=== PATIENT | female | born 1995 | race Caucasian/White ===

== ENCOUNTER → 2021-11-05 | Outpatient (CLI) | payer OTHER | LOC: M RAD 14:21 | PROVIDERS: ATTEND Nurse Practitioner Adult Health | DX: R10.11 Right upper quadrant pain (principal) ==

== ENCOUNTER → 2021-12-30 | Outpatient (CLI) | payer OTHER ==
[2021-12-30 09:00] LABS: BASO # 0.1 10^3/uL (0.0-0.2); BASO % 1.4 % (0.0-1.0); EOS # 0.5 10^3/uL (0.0-0.5); HEMATOCRIT 42.9 % (36.0-47.0); HEMOGLOBIN 14.5 g/dl (12.0-15.5); LYMPH # 2.6 10^3/uL (1.5-5.0); LYMPH % 36.2 % (24.0-44.0); MEAN CORPUSCULAR HEMOGLOBIN 29.2 pg (27.0-33.0); MEAN CORPUSCULAR HGB CONC 33.8 g/dl (32.0-36.5); MEAN CORPUSCULAR VOLUME 86.5 fl (80.0-96.0); MONO # 0.3 10^3/uL (0.0-0.8); MONO % 4.8 % (2.0-8.0); NEUTROPHILS # 3.6 10^3/uL (1.5-8.5); NEUTROPHILS % 50.3 % (36.0-66.0); PLATELET COUNT, AUTOMATED 280 10^3/uL (150-450); RED BLOOD COUNT 4.96 10^6/uL (4.00-5.40); WHITE BLOOD COUNT 7.1 10^3/uL (4.0-10.0)
[2021-12-30 09:44] LABS: ALBUMIN 4.2 GM/DL (3.2-5.2); ALT/SGPT 22 U/L (12-78); BILIRUBIN,TOTAL 1.3 MG/DL (0.2-1.0); BLOOD UREA NITROGEN 9 MG/DL (7-18); CALCIUM LEVEL 9.6 MG/DL (8.5-10.1); CARBON DIOXIDE LEVEL 29 MEQ/L (21-32); CHLORIDE LEVEL 106 MEQ/L (98-107); CHOLESTEROL LEVEL 197 MG/DL (<200); CHOLESTEROL RISK RATIO 2.698 (<5); CREATININE FOR GFR 0.84 MG/DL (0.55-1.30); FREE T4 1.04 NG/DL (0.76-1.46); GLOMERULAR FILTRATION RATE > 60.0 (>60); GLUCOSE, FASTING 86 MG/DL (70-100); HDL CHOLESTEROL 73 MG/DL (>40); LDL CHOLESTEROL 106 MG/DL (<100); NON-HDL-C 124 MG/DL; POTASSIUM SERUM 4.4 MEQ/L (3.5-5.1); SODIUM LEVEL 139 MEQ/L (136-145); TOTAL PROTEIN 7.7 GM/DL (6.4-8.2); TRIGLYCERIDES LEVEL 91 MG/DL (<150)
[2021-12-30 10:31] LABS: TOTAL 25(OH) VITAMIN D 36.1 NG/ML (30.0-100.0)
== END ==
LOC: M LAB 08:34
PROVIDERS: ATTEND Nurse Practitioner Adult Health
DX: Z13.29 Encounter for screening for other suspected endocrine disorder (principal); Z13.220 Encounter for screening for lipoid disorders; Z13.228 Encounter for screening for other metabolic disorders

== ENCOUNTER → 2021-12-30 | Outpatient (CLI) | payer OTHER | LOC: M WHC 07:41 | PROVIDERS: ATTEND Nurse Practitioner Adult Health | DX: R10.11 Right upper quadrant pain (principal) ==

== ENCOUNTER → 2022-01-01 | Outpatient (CLI) | payer OTHER ==
[2022-01-01 10:41] LABS: ALBUMIN 4.1 GM/DL (3.2-5.2); BILIRUBIN,DIRECT 0.3 MG/DL (0.0-0.2); BILIRUBIN,TOTAL 1.4 MG/DL (0.2-1.0); TOTAL PROTEIN 7.6 GM/DL (6.4-8.2)
== END ==
LOC: M LAB 09:18
PROVIDERS: ATTEND Nurse Practitioner Adult Health
DX: R94.5 Abnormal results of liver function studies (principal)

== ENCOUNTER → 2022-01-28 | Outpatient (REF) | payer OTHER | LOC: M PLALAB 16:15 | PROVIDERS: ATTEND Nurse Practitioner Family | DX: Z12.4 Encounter for screening for malignant neoplasm of cervix (principal) | CPT/HCPCS: 87624; G0123 ==

== ENCOUNTER → 2022-02-17 | Outpatient (CLI) | payer OTHER | LOC: M RAD 01-06 07:45 | PROVIDERS: ATTEND Nurse Practitioner Adult Health | DX: R10.11 Right upper quadrant pain (principal) | CPT/HCPCS: 78227; A9537 ==

== ENCOUNTER → 2022-03-08 | Outpatient (CLI) | payer OTHER | LOC: M LABSMTC 09:57 | PROVIDERS: ATTEND Anesthesiology | DX: Z01.812 Encounter for preprocedural laboratory examination (principal); Z20.822 Contact with and (suspected) exposure to COVID-19 ==

== ENCOUNTER → 2022-04-29 | Outpatient (CLI) | payer OTHER ==
[~2022-04-29] MED LIST: MULTTAB20 PO
== END ==
LOC: M LABSMTC 09:12
PROVIDERS: ATTEND Anesthesiology
DX: Z01.812 Encounter for preprocedural laboratory examination (principal); Z20.822 Contact with and (suspected) exposure to COVID-19

== ENCOUNTER 2022-05-04 06:12 | Day surgery (SDC) | payer OTHER ==
[~2022-05-04] VITALS: Ht 170.2 cm; Wt 63.1 kg
[2022-05-04] MEDS ORDERED: LR 1,000 ML IV SCH ×2 (06:40→08:25)
[2022-05-04] MEDS ORDERED: BUPIVACAINE/EPIN 0.25% 30ML VIAL As Ordered ONE (07:10)
[2022-05-04] MEDS ORDERED: ROCURONIUM BROMIDE 50MG/5ML VIAL As Ordered ONE (07:18)
[2022-05-04] MEDS ORDERED: LIDOCAINE 2% 100MG/5ML SDV (FOR ANES.) As Ordered ONE (07:18)
[2022-05-04] MEDS ORDERED: propofoL 200 MG/20 ML VIAL As Ordered ONE (07:18)
[2022-05-04] MEDS ORDERED: fentaNYL 250 MCG/5 ML INJECTION As Ordered ONE (07:19)
[2022-05-04] MEDS ORDERED: MIDAZOLAM INJ 2MG/2ML VIAL As Ordered ONE (07:19)
[2022-05-04] MEDS ORDERED: SUGAMMADEX SODIUM 500 MG/5 ML VIAL (BRIDION) As Ordered ONE (08:05)
[2022-05-04] MEDS ORDERED: KETOROLAC 60MG 2ML VIAL As Ordered ONE (08:05)
[2022-05-04] MEDS ORDERED: ONDANSETRON 4MG 2ML VIAL As Ordered ONE (08:05)
[2022-05-04] MEDS ORDERED: METOCLOPRAMIDE INJ 10MG/2ML VIAL As Ordered ONE (08:05)
[2022-05-04] MEDS ORDERED: ACETAMINOPHEN 1000MG 100ML IV BAG As Ordered ONE (08:05)
[2022-05-04] MEDS ORDERED: oxyCODONE 5MG TAB PO PRN (08:25)
[2022-05-04] MEDS ORDERED: PROMETHAZINE 25MG/ML 1ML VIAL IV PRN (08:25)
[2022-05-04] MEDS ORDERED: METOCLOPRAMIDE INJ 10MG/2ML VIAL IV PRN (08:25)
[2022-05-04] MEDS ORDERED: fentaNYL 100 MCG/2 ML INJECTION IV PRN (08:25)
[2022-05-04] MEDS ORDERED: HYDROMORPHONE HCL 0.5 MG/ 0.5 ML SYRINGE IV PRN (08:25)
[2022-05-04] MEDS ORDERED: ONDANSETRON 4MG 2ML VIAL IV PRN (08:25)
[2022-05-04 09:07] VITALS: BP 133/73
[2022-05-04] MEDS ORDERED: NORCO, ANEXSIA 5/325MG TABLET (HYDROcodone/ACETAMINOPHEN) PO PRN (09:45)
== END 2022-05-04 10:10 | disposition home or self-care (01) ==
LOC: M SDC 06:12
PROVIDERS: ATTEND Surgery
DX: K82.8 Other specified diseases of gallbladder (principal); N80.9 Endometriosis, unspecified
CPT/HCPCS: 47562; 81025; 88304; J1100; J2405; S2900

== ENCOUNTER 2022-05-06 11:11 | Emergency (ER) | payer OTHER ==
[~2022-05-06] VITALS: Ht 170.2 cm; Wt 63.6 kg
[2022-05-06 11:12] VITALS: BP 149/73
== END 2022-05-06 13:45 | disposition left against medical advice (07) ==
LOC: M ED 11:11
DX: Z53.21 Procedure and treatment not carried out due to patient leaving prior to being seen by health care provider (principal)

== ENCOUNTER → 2022-05-22 | Outpatient (REF) | payer OTHER | LOC: M LAB REF 15:24 | PROVIDERS: ATTEND Nurse Practitioner Adult Health | DX: N39.0 Urinary tract infection, site not specified (principal) ==

== ENCOUNTER → 2022-06-08 | Outpatient (CLI) | payer OTHER | LOC: M RAD 13:40 | PROVIDERS: ATTEND Nurse Practitioner Family | DX: R10.2 Pelvic and perineal pain (principal) ==

== ENCOUNTER → 2022-07-03 | Outpatient (CLI) | payer OTHER ==
[2022-07-03 08:32] LABS: BASO # 0.1 10^3/uL (0.0-0.2); BASO % 1.2 % (0.0-1.0); EOS # 0.6 10^3/uL (0.0-0.5); EOS % 10.8 % (0.0-3.0); HEMATOCRIT 43.8 % (36.0-47.0); HEMOGLOBIN 14.3 g/dl (12.0-15.5); MEAN CORPUSCULAR HEMOGLOBIN 28.8 pg (27.0-33.0); MEAN CORPUSCULAR HGB CONC 32.6 g/dl (32.0-36.5); MEAN CORPUSCULAR VOLUME 88.3 fl (80.0-96.0); MONO # 0.3 10^3/uL (0.0-0.8); MONO % 4.9 % (2.0-8.0); NEUTROPHILS # 2.8 10^3/uL (1.5-8.5); NEUTROPHILS % 47.9 % (36.0-66.0); PLATELET COUNT, AUTOMATED 277 10^3/uL (150-450); RED BLOOD COUNT 4.96 10^6/uL (4.00-5.40); WHITE BLOOD COUNT 5.8 10^3/uL (4.0-10.0)
[2022-07-03 08:55] LABS: LIPASE 43 U/L (12-53)
[2022-07-03 08:57] LABS: AMYLASE 135 U/L (30-118)
[2022-07-03 09:02] LABS: ALBUMIN 4.3 G/DL (3.2-5.2); ALKALINE PHOSPHATASE 89 U/L (46-116); ALT/SGPT 24 U/L (7.0-40); AST/SGOT 19 U/L (<34); BILIRUBIN,DIRECT 0.3 MG/DL (<0.4); BILIRUBIN,TOTAL 1.2 MG/DL (0.3-1.2); TOTAL PROTEIN 7.7 G/DL (5.7-8.2)
[2022-07-03 09:16] LABS: HEPATITIS B SURFACE ANTIGEN NEGATIVE (NEGATIVE)
[2022-07-03 09:37] LABS: HEPATITIS B CORE ANTIBODY IGM NEGATIVE (NEGATIVE)
== END ==
LOC: M LAB 07:40
PROVIDERS: ATTEND Nurse Practitioner Adult Health
DX: R10.11 Right upper quadrant pain (principal)

== ENCOUNTER → 2022-07-07 | Outpatient (CLI) | payer OTHER ==
[~2022-07-07] MED LIST changes: +GASTROGRAFIN SOLUTION 30ML As Ordered ONE; +ISOVUE-370 76% 100ML VIAL As Ordered ONE
== END ==
LOC: M RAD 07:32
PROVIDERS: ATTEND Nurse Practitioner Adult Health
DX: R10.11 Right upper quadrant pain (principal)

== ENCOUNTER → 2022-07-14 | Outpatient (CLI) | payer OTHER ==
[~2022-07-14] MED LIST changes: -GASTROGRAFIN SOLUTION 30ML As Ordered ONE; -ISOVUE-370 76% 100ML VIAL As Ordered ONE
== END ==
LOC: M LAB 09:28
PROVIDERS: ATTEND Nurse Practitioner Adult Health
DX: N91.1 Secondary amenorrhea (principal)

== ENCOUNTER → 2022-07-15 | Outpatient (REF) | payer OTHER | LOC: M WUC 09:22 | PROVIDERS: ATTEND Physician Assistant | DX: J01.00 Acute maxillary sinusitis, unspecified (principal) ==

== ENCOUNTER → 2022-07-17 | Outpatient (CLI) | payer OTHER | LOC: M LAB 07:39 | PROVIDERS: ATTEND Family Medicine | DX: N91.1 Secondary amenorrhea (principal) ==

== ENCOUNTER → 2022-07-22 | Outpatient (CLI) | payer OTHER | LOC: M LAB 11:00 | PROVIDERS: ATTEND Nurse Practitioner Adult Health | DX: N91.1 Secondary amenorrhea (principal) ==

== ENCOUNTER → 2022-08-14 | Outpatient (CLI) | payer OTHER ==
[~2022-08-14] MED LIST changes: +PROHANCE 279.3MG/ML 15ML VIAL ONE
== END ==
LOC: M PLAIMG 09:55
PROVIDERS: ATTEND Nurse Practitioner Adult Health
DX: K76.0 Fatty (change of) liver, not elsewhere classified (principal); D13.4 Benign neoplasm of liver
CPT/HCPCS: 74183; A9576

== ENCOUNTER → 2022-08-27 | Outpatient (CLI) | payer OTHER ==
[~2022-08-27] MED LIST changes: -PROHANCE 279.3MG/ML 15ML VIAL ONE
[2022-08-27 08:17] LABS: BASO # 0.1 10^3/uL (0.0-0.2); BASO % 1.5 % (0.0-1.0); EOS # 0.5 10^3/uL (0.0-0.5); EOS % 7.3 % (0.0-3.0); HEMATOCRIT 45.4 % (36.0-47.0); HEMOGLOBIN 14.6 g/dl (12.0-15.5); LYMPH # 2.5 10^3/uL (1.5-5.0); LYMPH % 36.2 % (24.0-44.0); MEAN CORPUSCULAR HEMOGLOBIN 28.6 pg (27.0-33.0); MEAN CORPUSCULAR HGB CONC 32.2 g/dl (32.0-36.5); MEAN CORPUSCULAR VOLUME 88.8 fl (80.0-96.0); MONO # 0.3 10^3/uL (0.0-0.8); MONO % 4.8 % (2.0-8.0); NEUTROPHILS # 3.4 10^3/uL (1.5-8.5); NEUTROPHILS % 49.8 % (36.0-66.0); PLATELET COUNT, AUTOMATED 304 10^3/uL (150-450); RED BLOOD COUNT 5.11 10^6/uL (4.00-5.40); WHITE BLOOD COUNT 6.8 10^3/uL (4.0-10.0)
[2022-08-27 08:32] LABS: LIPASE 39 U/L (12-53)
[2022-08-27 08:33] LABS: AMYLASE 112 U/L (30-118)
[2022-08-27 08:34] LABS: ALBUMIN 4.4 G/DL (3.2-5.2); ALKALINE PHOSPHATASE 87 U/L (46-116); ALT/SGPT 26 U/L (7.0-40); AST/SGOT 19 U/L (<34); BILIRUBIN,TOTAL 1.8 MG/DL (0.3-1.2); BLOOD UREA NITROGEN 15 MG/DL (9-23); CALCIUM LEVEL 9.3 MG/DL (8.5-10.1); CARBON DIOXIDE LEVEL 28 MMOL/L (20-31); CHLORIDE LEVEL 106 MMOL/L (98-107); CREATININE FOR GFR 0.88 MG/DL (0.55-1.30); GLOMERULAR FILTRATION RATE > 60.0 (>60); GLUCOSE, FASTING 88 MG/DL (60-100); POTASSIUM SERUM 4.8 MMOL/L (3.5-5.1); SODIUM LEVEL 140 MMOL/L (136-145); TOTAL PROTEIN 7.5 G/DL (5.7-8.2)
[2022-08-27 08:36] LABS: FREE T4 1.17 NG/DL (0.89-1.76)
== END ==
LOC: M LAB 07:33
PROVIDERS: ATTEND Family Medicine
DX: D13.4 Benign neoplasm of liver (principal)

== ENCOUNTER → 2022-11-18 | Outpatient (CLI) | payer OTHER ==
[2022-11-18 14:31] LABS: BASO # 0.1 10^3/uL (0.0-0.2); BASO % 1.4 % (0.0-1.0); EOS # 0.5 10^3/uL (0.0-0.5); EOS % 7.1 % (0.0-3.0); HEMATOCRIT 42.5 % (36.0-47.0); HEMOGLOBIN 13.9 g/dl (12.0-15.5); LYMPH # 2.4 10^3/uL (1.5-5.0); LYMPH % 36.8 % (24.0-44.0); MEAN CORPUSCULAR HEMOGLOBIN 28.8 pg (27.0-33.0); MEAN CORPUSCULAR HGB CONC 32.7 g/dl (32.0-36.5); MONO # 0.3 10^3/uL (0.0-0.8); MONO % 5.1 % (2.0-8.0); NEUTROPHILS # 3.2 10^3/uL (1.5-8.5); NEUTROPHILS % 49.4 % (36.0-66.0); PLATELET COUNT, AUTOMATED 290 10^3/uL (150-450); RED BLOOD COUNT 4.83 10^6/uL (4.00-5.40); WHITE BLOOD COUNT 6.5 10^3/uL (4.0-10.0)
[2022-11-18 14:54] LABS: FERRITIN 20.5 NG/ML (7.3-270.7); THYROID STIMULATING HORMONE 0.602 uIU/ML (0.55-4.78)
[2022-11-18 14:55] LABS: TOTAL 25(OH) VITAMIN D 44.9 NG/ML (20.0-100.0)
[2022-11-18 14:56] LABS: FREE T4 1.25 NG/DL (0.89-1.76); PERCENT SATURATION 33.7 % (13.2-45.0)
== END ==
LOC: M PLALAB 09:37
PROVIDERS: ATTEND Family Medicine
DX: R53.83 Other fatigue (principal)

== ENCOUNTER → 2022-12-03 | Outpatient (CLI) | payer OTHER | LOC: M PLALAB 11:44 | PROVIDERS: ATTEND Nurse Practitioner Adult Health | DX: N91.2 Amenorrhea, unspecified (principal) ==

== ENCOUNTER → 2022-12-09 | Outpatient (CLI) | payer OTHER | LOC: M PLALAB 12:16 | PROVIDERS: ATTEND Nurse Practitioner Adult Health | DX: N91.2 Amenorrhea, unspecified (principal) ==

== ENCOUNTER → 2022-12-14 | Outpatient (CLI) | payer OTHER | LOC: M PLALAB 07:24 | PROVIDERS: ATTEND Advanced Practice Midwife | DX: O09.299 Supervision of pregnancy with other poor reproductive or obstetric history, unspecified trimester (principal); Z3A.00 Weeks of gestation of pregnancy not specified ==

== ENCOUNTER → 2022-12-16 | Outpatient (REF) | payer OTHER | LOC: M LABDRAWP 13:26 | PROVIDERS: ATTEND Advanced Practice Midwife | DX: O09.299 Supervision of pregnancy with other poor reproductive or obstetric history, unspecified trimester (principal); Z3A.00 Weeks of gestation of pregnancy not specified ==

== ENCOUNTER → 2022-12-31 | Outpatient (CLI) | payer OTHER ==
[2022-12-31 17:49] LABS: HEMATOCRIT 39.5 % (36.0-47.0); HEMOGLOBIN 13.2 g/dl (12.0-15.5); MEAN CORPUSCULAR HEMOGLOBIN 29.3 pg (27.0-33.0); MEAN CORPUSCULAR HGB CONC 33.4 g/dl (32.0-36.5); MEAN CORPUSCULAR VOLUME 87.6 fl (80.0-96.0); PLATELET COUNT, AUTOMATED 299 10^3/uL (150-450); RED BLOOD COUNT 4.51 10^6/uL (4.00-5.40); WHITE BLOOD COUNT 12.8 10^3/uL (4.0-10.0)
[2022-12-31 18:39] LABS: HIV 1&2 SCREEN NEGATIVE (NEGATIVE)
[2022-12-31 18:47] LABS: HEPATITIS C VIRUS ABY INDEX 0.14 INDEX (<0.8)
[2022-12-31 20:01] LABS: GC DNA AMPLIFICATION NEGATIVE (NEGATIVE)
== END ==
LOC: M PLALAB 15:26
PROVIDERS: ATTEND Advanced Practice Midwife
DX: Z34.81 Encounter for supervision of other normal pregnancy, first trimester (principal)

== ENCOUNTER → 2023-02-08 | Outpatient (CLI) | payer OTHER | LOC: M PLALAB 08:16 | PROVIDERS: ATTEND Advanced Practice Midwife | DX: Z34.81 Encounter for supervision of other normal pregnancy, first trimester (principal) ==

== ENCOUNTER → 2023-04-07 | Outpatient (CLI) | payer OTHER | LOC: M WHC 07:33 | PROVIDERS: ATTEND Advanced Practice Midwife | DX: O09.299 Supervision of pregnancy with other poor reproductive or obstetric history, unspecified trimester (principal) ==

== ENCOUNTER → 2023-05-11 | Outpatient (CLI) | payer OTHER ==
[2023-05-11 10:12] LABS: HEMATOCRIT 36.1 % (36.0-47.0); MEAN CORPUSCULAR HEMOGLOBIN 30.5 pg (27.0-33.0); MEAN CORPUSCULAR HGB CONC 33.2 g/dl (32.0-36.5); MEAN CORPUSCULAR VOLUME 91.6 fl (80.0-96.0); PLATELET COUNT, AUTOMATED 303 10^3/uL (150-450); RED BLOOD COUNT 3.94 10^6/uL (4.00-5.40); WHITE BLOOD COUNT 15.3 10^3/uL (4.0-10.0)
== END ==
LOC: M PLALAB 07:47
PROVIDERS: ATTEND Advanced Practice Midwife
DX: Z34.82 Encounter for supervision of other normal pregnancy, second trimester (principal); Z3A.00 Weeks of gestation of pregnancy not specified
CPT/HCPCS: 36415; 82950; 85027; 86850; 87490; 87590; G0463

== ENCOUNTER → 2023-05-25 | Outpatient (REF) | payer OTHER ==
[2023-05-25 11:28] LABS: ALBUMIN 2.8 G/DL (3.2-5.2); BILIRUBIN,DIRECT 0.2 MG/DL (<0.4); BILIRUBIN,TOTAL 0.9 MG/DL (0.3-1.2); TOTAL PROTEIN 6.4 G/DL (5.7-8.2)
== END ==
LOC: M LABDRAWP 09:52
PROVIDERS: ATTEND Advanced Practice Midwife
DX: Z34.82 Encounter for supervision of other normal pregnancy, second trimester (principal); L29.9 Pruritus, unspecified

== ENCOUNTER → 2023-06-22 | Outpatient (CLI) | payer OTHER ==
[2023-06-22 15:03] LABS: ALBUMIN 2.7 G/DL (3.2-5.2); BILIRUBIN,DIRECT 0.2 MG/DL (<0.4); BILIRUBIN,TOTAL 1.1 MG/DL (0.3-1.2); TOTAL PROTEIN 6.5 G/DL (5.7-8.2)
== END ==
LOC: M PLALAB 11:10
PROVIDERS: ATTEND Advanced Practice Midwife
DX: Z34.03 Encounter for supervision of normal first pregnancy, third trimester (principal)

== ENCOUNTER → 2023-07-15 | Outpatient (REF) | payer OTHER | LOC: M SFHCWAGY 13:14 | PROVIDERS: ATTEND Advanced Practice Midwife | DX: Z36.89 Encounter for other specified antenatal screening (principal); Z3A.36 36 weeks gestation of pregnancy ==

== ENCOUNTER 2023-07-26 08:17 | Inpatient (IN) | payer OTHER ==
[2023-07-26] VITALS (10 sets, daily range): BP systolic 104–117; BP diastolic 52–76; TEMP 97.5–98.4
[~2023-07-26] VITALS: Ht 170.2 cm; Wt 74.6 kg
[2023-07-26] MEDS ORDERED: LIDOCAINE 1% MDV 20ML VIAL INFIL PRN (08:30)
[2023-07-26] MEDS ORDERED: TRANEXAMIC ACID INJection 1,000 MG in NS 100 ML IV PRN (08:30)
[2023-07-26] MEDS ORDERED: METHYLERGONOVINE MALEATE 0.2MG/ML 1ML VIAL IM PRN (08:30)
[2023-07-26] MEDS ORDERED: CARBOPROST TROMETHAMINE 250 MCG/ML AMP IM PRN (08:30)
[2023-07-26] MEDS ORDERED: HOME MED LIST COMPLETE! XX SCH (08:30)
[2023-07-26] MEDS ORDERED: OXYTOCIN INJ 10UNITS/ML 1ML VIAL IM PRN (08:30)
[2023-07-26] MEDS ORDERED: OXYTOCIN DRIP 30 UNITS in IV 1 EA IV PRN (08:30)
[2023-07-26 09:25] LABS: HEMATOCRIT 34.9 % (36.0-47.0); MEAN CORPUSCULAR HEMOGLOBIN 29.8 pg (27.0-33.0); MEAN CORPUSCULAR HGB CONC 34.4 g/dl (32.0-36.5); MEAN CORPUSCULAR VOLUME 86.6 fl (80.0-96.0); PLATELET COUNT, AUTOMATED 323 10^3/uL (150-450); RED BLOOD COUNT 4.03 10^6/uL (4.00-5.40); WHITE BLOOD COUNT 15.7 10^3/uL (4.0-10.0)
[2023-07-26] MEDS: miSOPROStol 50MCG 1/2 TABLET PO SCH (09:37)
[2023-07-26] MEDS: LACTATED RINGER'S 1000 ML IV STA (13:23)
[2023-07-26] MEDS: OXYTOCIN DRIP 30 UNITS in IV 1 EA IV SCH (17:18)
[2023-07-26] MEDS: LR 1,000 ML IV SCH (17:19)
[2023-07-27] VITALS (39 sets, daily range): BP systolic 98–131; BP diastolic 51–69; TEMP 97.8; O2SAT 94–100
[2023-07-27] MEDS ORDERED: LR 500 ML IV PRN (09:05)
[2023-07-27] MEDS ORDERED: ePHEDrine SULFATE 25 MG/5 ML(5MG/ML) SYRINGE IVP PRN (09:05)
[2023-07-27] MEDS ORDERED: NALOXONE INJ 0.4MG/1ML VIAL IV PRN (09:05)
[2023-07-27] MEDS ORDERED: EPIDURAL/PCA KEYS XX PRN (09:05)
[2023-07-27] MEDS ORDERED: ONDANSETRON 4MG 2ML VIAL IV PRN ×2 (09:05→11:35)
[2023-07-27] MEDS ORDERED: FENTANYL 2MCG/ML ROPIVACAINE 0.2% IN 0.9% NACL 100ML IVBAG As Ordered ONE (09:06)
[2023-07-27] MEDS: FENTANYL/ROPIVACAINE/NACL BAG 100 ML EPIDURAL SCH (09:37)
[2023-07-27] MEDS ORDERED: METHYLERGONOVINE MALEATE 0.2MG/ML 1ML VIAL IM PRN (11:05)
[2023-07-27] MEDS ORDERED: TRANEXAMIC ACID INJection 1,000 MG in NS 100 ML IV PRN (11:05)
[2023-07-27] MEDS: AZITHROMYCIN INJ 500 MG, VIAL MATE ADAPTER 1 EACH in NS 250 ML IV ONE (11:19)
[2023-07-27] MEDS: BICITRA 30ML SOLN UDC PO ONE (11:19)
[2023-07-27] MEDS: ceFAZolin SOD 2 GM in IV 1 EA IV ONE (11:19)
[2023-07-27] MEDS ORDERED: MOM 30ML SUSPENSION UDC PO PRN (11:35)
[2023-07-27] MEDS ORDERED: RHOGAM 300MCG (1500IU) INJ IM SCH (11:35)
[2023-07-27] MEDS ORDERED: SIMETHICONE 80MG CHEW TAB PO PRN (11:35)
[2023-07-27] MEDS: LR 1,000 ML IV SCH (11:35)
[2023-07-27] MEDS ORDERED: CALCIUM CARBONATE 500 MG CHEW U/D PO PRN (11:35)
[2023-07-27] MEDS ORDERED: MORPHINE PRES-FREE INJ 10 MG/10 ML VIAL As Ordered ONE (11:53)
[2023-07-27] MEDS ORDERED: ePHEDrine SULFATE 25 MG/5 ML(5MG/ML) SYRINGE As Ordered ONE (11:53)
[2023-07-27] MEDS ORDERED: ONDANSETRON 4MG 2ML VIAL As Ordered ONE (11:53)
[2023-07-27] MEDS ORDERED: OXYTOCIN 30UNITS IN 0.9% NaCl 500ML IV BAG As Ordered ONE (11:53)
[2023-07-27] MEDS ORDERED: PHENYLephrine 500MCG 5ML (100MCG/ML) SYRINGE As Ordered ONE (11:53)
[2023-07-27] MEDS ORDERED: fentaNYL 100 MCG/2 ML INJECTION As Ordered ONE (11:53)
[2023-07-27 12:01] LABS: CORD GAS ABE A -7.4; CORD GAS HCO3 A 21.2 MMOL/L; CORD GAS O2 SAT A 18.8 %; CORD GAS PCO2 A 54.5 mmHg; CORD GAS PH A 7.207 UNITS; CORD GAS PO2 A 12.6 mmHg; CORD GAS SBC A 16.8 MMOL/L; CORD GAS TCO2 A 22.8 MMOL/L
[2023-07-27] MEDS ORDERED: KETOROLAC 60MG 2ML VIAL As Ordered ONE (12:01)
[2023-07-27 12:04] LABS: CORD GAS ABE V -6.1; CORD GAS HCO3 V 22.2 MMOL/L; CORD GAS O2 SAT V 34.3 %; CORD GAS PCO2 V 54.2 mmHg; CORD GAS PH V 7.23 UNITS; CORD GAS PO2 V 18.6 mmHg; CORD GAS SBC V 18.1 MMOL/L; CORD GAS TCO2 V 23.9 MMOL/L
[2023-07-27] MEDS: OXYTOCIN DRIP 30 UNITS in IV 1 EA IV SCH (12:58)
[2023-07-27] MEDS: KETOROLAC 30 MG/ML 1ML VIAL IV SCH (18:07)
[2023-07-27] MEDS: DOCUSATE SODIUM 100MG CAPSULE PO SCH (21:07)
[2023-07-28] MEDS: diphenhydrAMINE 50MG/ML VIAL IV PRN (00:43)
[2023-07-28 02:00] VITALS: BP 109/61; O2SAT 97
[2023-07-28 07:41] LABS: HEMATOCRIT 29.6 % (36.0-47.0); MEAN CORPUSCULAR HEMOGLOBIN 29.7 pg (27.0-33.0); MEAN CORPUSCULAR HGB CONC 33.4 g/dl (32.0-36.5); MEAN CORPUSCULAR VOLUME 88.9 fl (80.0-96.0); PLATELET COUNT, AUTOMATED 265 10^3/uL (150-450); RED BLOOD COUNT 3.33 10^6/uL (4.00-5.40); WHITE BLOOD COUNT 16.9 10^3/uL (4.0-10.0)
[2023-07-28 07:59] LABS: HEMOGLOBIN 9.9 g/dl (12.0-15.5)
[2023-07-28] MEDS: FERROUS SULFATE 325MG TAB PO SCH (08:45)
[2023-07-28] MEDS: PRENATAL VITAMINS CHEWABLE TABLET PO SCH (08:45)
[2023-07-28] MEDS: IBUPROFEN 800 MG TAB PO SCH (08:45)
[2023-07-28] MEDS: PERCOCET 5MG/325MG TAB PO PRN ×2 (09:50→13:57)
[2023-07-28 10:00] VITALS: BP 107/56; O2SAT 97
[2023-07-28 14:00] VITALS: BP 107/57; O2SAT 100
[2023-07-28 18:00] VITALS: BP 106/52; O2SAT 97
[2023-07-28 22:00] VITALS: BP 125/67; O2SAT 100
[2023-07-29 02:00] VITALS: BP 125/60; O2SAT 98
[2023-07-29 05:58] VITALS: BP 128/59; O2SAT 100
[2023-07-29] MEDS ORDERED: IBUP80TA PO (07:41)
[2023-07-29] MEDS ORDERED: COLA100C5 PO (07:41)
[2023-07-29] MEDS ORDERED: PERCOCET PO ×2 (07:41→10:37)
[2023-07-29] MEDS: MEASLES,MUMPS,RUBELLA VACCINE INJ (MMR-II) SC.IMMUN ONE (07:57)
[2023-07-29 09:59] VITALS: BP 115/55; O2SAT 100
== END 2023-07-29 12:40 | disposition home or self-care (01) | DRG 771 ==
LOC: M LDI 08:17 → M OBS 07-27 13:58
PROVIDERS: ADMIT Advanced Practice Midwife; ATTEND Advanced Practice Midwife
PROC: 3E033VJ Introduction of Other Hormone into Peripheral Vein, Percutaneous Approach (ICD-10-PCS; 2023-07-26)
PROC: 10D00Z1 Extraction of Products of Conception, Low, Open Approach (ICD-10-PCS; principal; 2023-07-27 11:57)
DX: O26.62 Liver and biliary tract disorders in childbirth (principal); K83.1 Obstruction of bile duct; Z37.0 Single live birth; Z3A.37 37 weeks gestation of pregnancy; O76 Abnormality in fetal heart rate and rhythm complicating labor and delivery

== ENCOUNTER → 2023-08-27 | Outpatient (CLI) | payer OTHER ==
[~2023-08-27] MED LIST changes: +COLA100C5 PO; +IBUP80TA PO; +PERCOCET PO
[2023-08-27 12:49] LABS: BASO # 0.1 10^3/uL (0.0-0.2); BASO % 1.4 % (0.0-1.0); EOS # 0.9 10^3/uL (0.0-0.5); EOS % 10.9 % (0.0-3.0); HEMATOCRIT 41.1 % (36.0-47.0); HEMOGLOBIN 13.2 g/dl (12.0-15.5); LYMPH # 3.7 10^3/uL (1.5-5.0); LYMPH % 42.8 % (24.0-44.0); MEAN CORPUSCULAR HEMOGLOBIN 28.1 pg (27.0-33.0); MEAN CORPUSCULAR HGB CONC 32.1 g/dl (32.0-36.5); MEAN CORPUSCULAR VOLUME 87.6 fl (80.0-96.0); MONO # 0.4 10^3/uL (0.0-0.8); MONO % 4.2 % (2.0-8.0); NEUTROPHILS # 3.5 10^3/uL (1.5-8.5); NEUTROPHILS % 40.5 % (36.0-66.0); PLATELET COUNT, AUTOMATED 283 10^3/uL (150-450); RED BLOOD COUNT 4.69 10^6/uL (4.00-5.40); WHITE BLOOD COUNT 8.6 10^3/uL (4.0-10.0)
[2023-08-27 12:54] LABS: LIPASE 41 U/L (12-53)
[2023-08-27 12:55] LABS: AMYLASE 120 U/L (30-118)
[2023-08-27 12:57] LABS: ALBUMIN 3.4 G/DL (3.2-5.2); ALKALINE PHOSPHATASE 110 U/L (46-116); ALT/SGPT 30 U/L (7.0-40); AST/SGOT 17 U/L (<34); BILIRUBIN,TOTAL 1.3 MG/DL (0.3-1.2); BLOOD UREA NITROGEN 17 MG/DL (9-23); CALCIUM LEVEL 8.9 MG/DL (8.5-10.1); CARBON DIOXIDE LEVEL 28 MMOL/L (20-31); CHLORIDE LEVEL 107 MMOL/L (98-107); CREATININE FOR GFR 0.96 MG/DL (0.55-1.30); FREE T4 1.08 NG/DL (0.89-1.76); GLOMERULAR FILTRATION RATE > 60.0 (>60); GLUCOSE, FASTING 88 MG/DL (60-100); POTASSIUM SERUM 4.6 MMOL/L (3.5-5.1); SODIUM LEVEL 140 MMOL/L (136-145); THYROID STIMULATING HORMONE 0.583 uIU/ML (0.55-4.78)
== END ==
LOC: M PLALAB 08:53
PROVIDERS: ATTEND Nurse Practitioner Adult Health
DX: R16.0 Hepatomegaly, not elsewhere classified (principal); K59.00 Constipation, unspecified

== ENCOUNTER → 2023-09-24 | Outpatient (REF) | payer OTHER | LOC: M LAB REF 10:40 | PROVIDERS: ATTEND Family Medicine | DX: R19.7 Diarrhea, unspecified (principal) ==

== ENCOUNTER → 2023-10-13 | Outpatient (CLI) | payer OTHER ==
[~2023-10-13] MED LIST changes: +PROHANCE 279.3MG/ML 15ML VIAL As Ordered ONE
== END ==
LOC: M RAD 08:28
PROVIDERS: ATTEND Student in an Organized Health Care Education/Training Program
DX: K76.9 Liver disease, unspecified (principal); R19.7 Diarrhea, unspecified; Z90.49 Acquired absence of other specified parts of digestive tract
CPT/HCPCS: 74183; A9576

== ENCOUNTER → 2023-11-18 | Outpatient (REF) | payer OTHER ==
[~2023-11-18] MED LIST changes: -PROHANCE 279.3MG/ML 15ML VIAL As Ordered ONE
[2023-11-20 11:20] LABS: HPV APTIMA Not Detected (Not Detected)
== END ==
LOC: M SFHCWAGY 15:12
PROVIDERS: ATTEND Nurse Practitioner Family
DX: Z12.4 Encounter for screening for malignant neoplasm of cervix (principal)
CPT/HCPCS: 87624; G0123

== ENCOUNTER → 2024-05-26 | Outpatient (CLI) | payer OTHER ==
[~2024-05-26] MED LIST changes: +PROHANCE 279.3MG/ML 15ML VIAL As Ordered ONE
== END ==
LOC: M RAD 08:46
PROVIDERS: ATTEND Nurse Practitioner Adult Health
DX: R16.0 Hepatomegaly, not elsewhere classified (principal); D18.03 Hemangioma of intra-abdominal structures
CPT/HCPCS: 74183; A9576

== ENCOUNTER → 2024-06-21 | Outpatient (CLI) | payer OTHER ==
[~2024-06-21] MED LIST changes: -PROHANCE 279.3MG/ML 15ML VIAL As Ordered ONE
== END ==
LOC: M WHC 09:06
PROVIDERS: ATTEND Nurse Practitioner Family
DX: N94.6 Dysmenorrhea, unspecified (principal); N84.0 Polyp of corpus uteri

== ENCOUNTER → 2024-10-26 | Outpatient (CLI) | payer OTHER ==
[2024-10-26 11:38] LABS: ALT/SGPT 19.0 U/L (7.0-40); AST/SGOT 18.0 U/L (<34)
[2024-11-02 13:35] LABS: CHENODEOXYCHOLIC ACID 1.3 umol/L (< OR = 3.1); CHOLACID < 0.5 umol/L (< OR = 1.8); DEOXYCHOLIC ACID < 0.5 umol/L (< OR = 2.4)
== END ==
LOC: M PLALAB 07:55
PROVIDERS: ATTEND Nurse Practitioner Adult Health
DX: R16.0 Hepatomegaly, not elsewhere classified (principal)

== ENCOUNTER → 2025-01-02 | Outpatient (CLI) | payer OTHER | LOC: M PLAIMG 07:57 | PROVIDERS: ATTEND Nurse Practitioner Adult Health | DX: M79.671 Pain in right foot (principal) ==

== ENCOUNTER → 2025-01-27 | Outpatient (REF) | payer OTHER | LOC: M LAB REF 15:08 | PROVIDERS: ATTEND Student in an Organized Health Care Education/Training Program | DX: R30.0 Dysuria (principal) ==